=== PATIENT | female | born 1955 | race Two or more races ===

== ENCOUNTER → 2020-10-24 | Outpatient (CLI) | payer OTHER ==
[~2020-10-24] MED LIST: ATO40T PO; LEVO100I PO
[2020-10-24 09:02] LABS: Basophils # (auto) 0.2 10 ^3/uL (0-0.2); Eosinophils # (auto) 0.1 10 ^3/uL (0-0.8); Eosinophils % (auto) 1.5 % (0.0-7.0); Hematocrit 44.2 % (36.0-46.0); Lymphocytes # (auto) 2.9 10 ^3/uL (0.4-5.4); Lymphocytes % (auto) 36.4 % (10.0-50.0); Mean Corpuscular Hemoglobin 32.4 pg (28.0-32.0); Mean Corpuscular Hgb Conc. 33.9 g/dL (32.0-36.0); Mean Corpuscular Volume 95.6 fL (80.0-100.0); Monocytes # (auto) 0.6 10 ^3/uL (0-1.3); Monocytes % (auto) 7.8 % (0.0-12.0); Neutrophils # (auto) 4.2 10 ^3/uL (1.6-8.6); Neutrophils % (auto) 52.3 % (37.0-80.0); Nucleated Red Blood Cells % 0.1 %; Platelet Count (auto) 255 10^3/uL (140-450); Red Blood Cells 4.62 10^6/uL (4.0-5.20); White Blood Cell 8.1 10^3/uL (4.4-10.8)
[2020-10-24 09:17] LABS: Urine Bacteria FEW /hpf (None Seen); Urine Blood Negative /uL (Negative); Urine Mucus FEW (None Seen); Urine Specific Gravity 1.017 (1.001-1.035); Urine WBC 1 /hpf (0 - 5)
[2020-10-24 09:51] LABS: Potassium 4.2 mmol/L (3.5-5.1)
[2020-10-24 10:00] LABS: Albumin 3.9 g/dL (3.4-5.0); BUN/Creatinine Ratio 21.3; Bilirubin, Total 0.6 mg/dL (0.2-1.0); Calcium 9.5 mg/dL (8.5-10.1); Total Protein 7.4 g/dL (6.4-8.2)
== END | disposition home or self-care (01) ==
LOC: LAB 08:32
PROVIDERS: ATTEND Internal Medicine
DX: I10 Essential (primary) hypertension (principal); E03.9 Hypothyroidism, unspecified; R73.03 Prediabetes
CPT/HCPCS: 36415; 80053; 80061; 81001; 82043; 83036; 84443; 85025

== ENCOUNTER → 2021-06-05 | Outpatient (CLI) | payer OTHER ==
[2021-06-05 12:57] LABS: Urine Bacteria FEW /hpf (None Seen); Urine Blood Negative /uL (Negative); Urine Specific Gravity 1.004 (1.001-1.035); Urine WBC <1 /hpf (0 - 5)
== END | disposition home or self-care (01) ==
LOC: LAB 11:53
PROVIDERS: ATTEND Internal Medicine Gastroenterology
DX: N39.0 Urinary tract infection, site not specified (principal); R06.00 Dyspnea, unspecified
CPT/HCPCS: 81001; 87086

== ENCOUNTER → 2021-08-12 | Outpatient (CLI) | payer OTHER ==
[2021-08-12 09:46] LABS: Cholesterol 157 mg/dL (< 200); HDL Cholesterol 75 mg/dL (40-59); LDL Cholesterol 69 mg/dL (< 100); Triglycerides 129 mg/dL (< 150)
== END | disposition home or self-care (01) ==
LOC: LAB 08:32
PROVIDERS: ATTEND Internal Medicine
DX: E78.5 Hyperlipidemia, unspecified (principal); R10.31 Right lower quadrant pain
CPT/HCPCS: 36415; 80061; 83036